=== PATIENT | female | born 1965 | race Caucasian/White ===

== ENCOUNTER 2020-12-08 12:55 | Outpatient (REF) | payer SELFPAY ==
[2020-12-10 14:14] LABS: COVID-19 RT-PCR UVMMC Result Negative (Negative)
== END 2020-12-08 12:56 | disposition home or self-care (01) ==
LOC: NCHCN 12:55
PROVIDERS: Visit Provider Nurse Practitioner Community Health
DX: Z20.822 Contact with and (suspected) exposure to COVID-19 (principal); R05 Cough
CPT/HCPCS: U0003

== ENCOUNTER 2022-02-20 19:24 | Outpatient (REF) | payer BC, SELFPAY ==
--- NOTE | 2022-02-20 16:10 | PAPFT_PTH ---
PATIENT: Danilo Santacruz LOC: [facility]#:[id number] AGE/SX: 56/F ROOM: RE02/20/[address]: Elke Mora : 1965 BED: DIS: 02/20/2022 SPEC #: [id number] RECD: 02/21/22 12:39 STATUS: TRAVISBaltazar REQ #: [id number] MONET: 02/20/22 16:[address]: Elke Mora DEPT: [facility] Cytology RECD BY: Estrella Cho ENTERED: 02/21/22 12:39 SP TYPE: PAPFT BECKI DR: None Tissues: 1 - CX/ENDOCX FOR PAP SMEARS Procedures: PAP THIN PREP/[facility] Screening HPV DNA PROBE Comments: [id number]
[2022-02-20 21:26] LABS: Hemoglobin A1C 5.5 % (<5.7)
[2022-02-20 21:31] LABS: Anion Gap 8.6 mmol/L (3-11); BUN 19 mg/dL (7-18); CO2 28.4 mmol/L (21.0-32.0); CREATININE 0.9 mg/dL (0.55-1.02); Calcium 9.1 mg/dL (8.5-10.1); Calculated LDL 143 mg/dL (<100); Chloride 104 mmol/L (98-107); Cholesterol 254 mg/dL (<200); Estimated GFR 75.03 (mL/min/1.73m2); Glucose 96 mg/dL (74-106); HDL Cholesterol 62 mg/dL (40-60); Potassium 4.1 mmol/L (3.5-5.1); Sodium 141 mmol/L (136-145); Triglyceride 248 mg/dL (<150)
== END 2022-02-20 19:25 | disposition home or self-care (01) ==
LOC: NCHCN 19:24
PROVIDERS: Visit Provider Family Medicine
DX: Z12.4 Encounter for screening for malignant neoplasm of cervix (principal); Z11.51 Encounter for screening for human papillomavirus (HPV); Z00.00 Encounter for general adult medical examination without abnormal findings
CPT/HCPCS: 80048; 80061; 88142; 83036; 87624

== ENCOUNTER 2025-01-25 18:52 | Outpatient (REF) | payer BC, SELFPAY ==
[2025-01-25 21:31] LABS: Anion Gap 10.8 mmol/L (3-11); BUN 18 mg/dL (7-18); CO2 27.2 mmol/L (21.0-32.0); Calcium 9.8 mg/dL (8.5-10.1); Calculated LDL 241 mg/dL (<100); Chloride 101 mmol/L (98-107); Cholesterol 334 mg/dL (<200); Estimated GFR 99.57 (mL/min/1.73m2); Glucose 90 mg/dL (74-106); HDL Cholesterol 57 mg/dL (>or=50); Potassium 4.2 mmol/L (3.5-5.1); Sodium 139 mmol/L (136-145); TSH (W/Ref FT4) 1.28 uIU/mL (0.36-3.74); Triglyceride 182 mg/dL (<150)
[2025-01-25 22:42] LABS: Hemoglobin A1C 5.5 % (<5.7)
== END 2025-01-25 18:53 | disposition home or self-care (01) ==
LOC: NCHCN 18:52
PROVIDERS: PCP Family Medicine; Visit Provider Family Medicine
DX: Z13.6 Encounter for screening for cardiovascular disorders (principal); I10 Essential (primary) hypertension; R63.5 Abnormal weight gain; Z13.1 Encounter for screening for diabetes mellitus
CPT/HCPCS: 80048; 80061; 83036; 84443